=== PATIENT | female | born 2000 | race Caucasian/White ===

== ENCOUNTER 2018-04-17 10:56 | Inpatient (IN) | payer OTHER ==
[2018-04-17] MEDS ORDERED: LACTATED RINGER'S 1,000 ML IV (16:28)
[2018-04-17] MEDS ORDERED: CARBOPROST 250 MCG INJ IM (16:30)
[2018-04-17] MEDS ORDERED: OXYTOCIN 30 UNITS/LR 500 ML IV (16:30)
[2018-04-17] MEDS ORDERED: IBUPROFEN 600 MG TAB PO (16:30)
[2018-04-17] MEDS ORDERED: AMPICILLIN 2 GM/NS (PMX) 100 ML IV (16:30)
[2018-04-17] MEDS ORDERED: BUTORPHANOL 2 MG INJ IV (16:30)
[2018-04-17] MEDS ORDERED: LIDOCAINE 1% (MPF) 30 ML INJ INJ (16:30)
[2018-04-17] MEDS ORDERED: MISOPROSTOL 200 MCG TAB PR (16:30)
[2018-04-17] MEDS ORDERED: METHYLERGONOVINE 0.2 MG INJ IM (16:30)
[2018-04-17] MEDS ORDERED: BUTORPHANOL 1 MG INJ IV (16:30)
[2018-04-17 17:19] LABS: ADD MAN DIFF? NO
[2018-04-17 17:23] LABS: WHITE BLOOD COUNT 9.6 10^3/ul (4.8-10.8)
[2018-04-17 17:23] LABS: BASOPHILS % 0.3 % (0.0-2.0); EOSINOPHILS # 0.2 10^3/ul (0.0-0.5); EOSINOPHILS % 1.6 % (0.0-7.0); HEMATOCRIT 39.9 % (37.0-47.0); HEMOGLOBIN 13.4 g/dl (12.0-16.0); LYMPHOCYTES # 2.3 10^3/ul (0.8-2.9); LYMPHOCYTES % 24.4 % (18.0-55.0); MEAN CORPUSCULAR HEMOGLOBIN 28.9 pg (29.0-33.0); MEAN CORPUSCULAR HGB CONC 33.6 g/dl (32.0-37.0); MEAN CORPUSCULAR VOLUME 86.2 fl (72.0-104.0); MEAN PLATELET VOLUME 11.7 fl (7.4-10.4); MONOCYTE # 0.8 10^3/ul (0.3-0.9); NEUTROPHIL # 6.2 10^3/ul (1.6-7.5); NEUTROPHILS % 65.2 % (30.0-74.0); PLATELET COUNT 283 10^3/UL (140-415); RED BLOOD COUNT 4.63 10^6/ul (4.20-5.40)
[2018-04-17 17:42] LABS: INR 0.82; PROTIME 11.3 Sec (11.9-14.9); PT RATIO 0.9
[2018-04-17 17:43] LABS: PARTIAL THROMBOPLASTIN TIME 27.5 Sec (25.0-35.0)
[2018-04-17] MEDS: LACTATED RINGER'S 1,000 ML IV* ×2 (17:45→22:42)
[2018-04-17 18:10] LABS: HEPATITIS B SURFACE ANTIGEN NEGATIVE (NEGATIVE)
[2018-04-17] MEDS: DINOPROSTONE 10 MG VAG SUPP VAG (19:04)
[2018-04-17] MEDS ORDERED: AMPICILLIN 1 GM/NS (PMX) 50 ML IV (20:30)
[2018-04-17] MEDS ORDERED: MINERAL OIL LIGHT 10 ML VIAL TOP (21:00)
[2018-04-17 21:22] LABS: RAPID PLASMA REAGIN NONREACTIVE (NR)
[2018-04-18 05:25] LABS: ADD UMIC NO; UR ASCORBIC ACID NEGATIVE (NEGATIVE); UR BILIRUBIN (Dip) NEGATIVE (NEGATIVE); UR BLOOD (Dip) NEGATIVE (NEGATIVE); UR CLARITY CLEAR (CLEAR); UR COLOR YELLOW (YELLOW); UR GLUCOSE (Dip) NEGATIVE (NEGATIVE); UR KETONES (Dip) NEGATIVE (NEGATIVE); UR LEUKOCYTE ESTERASE (Dip) NEGATIVE Leu/ul (NEGATIVE); UR NITRITE (Dip) NEGATIVE (NEGATIVE); UR SPECIFIC GRAVITY (Dip) 1.011 (1.003-1.030); UR TOTAL PROTEIN (Dip) NEGATIVE (NEGATIVE); UR UROBILINOGEN (Dip) NEGATIVE (NEGATIVE)
[2018-04-18] MEDS: LACTATED RINGER'S 1,000 ML IV* ×3 (06:39→22:32)
[2018-04-18] MEDS: MISOPROSTOL 25 MCG CAPSULE PO (22:06)
[2018-04-19] MEDS: MISOPROSTOL 25 MCG CAPSULE PO ×5 (01:58→17:00)
[2018-04-19] MEDS: LACTATED RINGER'S 1,000 ML IV* ×4 (06:19→21:12)
[2018-04-19] MEDS: AMPICILLIN 2 GM/NS (PMX) 100 ML IVPB (15:43)
[2018-04-19] MEDS ORDERED: FENTAnyl 2MCG/ML-ROPIV 0.2% 100 ML (16:17)
[2018-04-19] MEDS ORDERED: TERBUTALINE 1 ML (19:22)
[2018-04-19] MEDS: TERBUTALINE 1 MG/ML INJ SC (19:30)
[2018-04-19] MEDS: AMPICILLIN 1 GM/NS (PMX) 50 ML IVPB ×2 (19:30→23:52)
[2018-04-19] MEDS ORDERED: NALOXONE (0.4 MG/ML) INJ IV (21:00)
[2018-04-19] MEDS ORDERED: DIPHENHYDRAMINE 50 MG INJ IV (21:00)
[2018-04-19] MEDS ORDERED: ONDANSETRON 4 MG INJ IV (21:00)
[2018-04-19] MEDS: FENTAnyl 2MCG/ML-ROPIV 0.2% 100 ML BAG EPI (23:09)
[2018-04-20] MEDS: ACETAMINOPHEN 325 MG TAB PO (00:49)
[2018-04-20] MEDS: GENTAMICIN 120 MG/NS (PMX) 100 ML IVPB (00:49)
[2018-04-20] MEDS: LACTATED RINGER'S 1,000 ML IV* ×3 (00:49→21:19)
[2018-04-20] MEDS: OXYTOCIN 30 UNITS/LR 500 ML IV ×5 (00:50→13:30)
[2018-04-20] MEDS: AMPICILLIN 1 GM/NS (PMX) 50 ML IVPB (03:45)
[2018-04-20] MEDS ORDERED: OXYTOCIN 30 UNITS/LR 500 ML IV ×2 (05:19→05:30)
[2018-04-20] MEDS ORDERED: HYDROCODONE/APAP (5/325) TAB PO ×2 (05:30)
[2018-04-20] MEDS ORDERED: MISOPROSTOL 200 MCG TAB PR (05:30)
[2018-04-20] MEDS ORDERED: DIBUCAINE 1% 30 GM OINT PR (05:30)
[2018-04-20] MEDS ORDERED: METHYLERGONOVINE 0.2 MG INJ IM (05:30)
[2018-04-20] MEDS ORDERED: CARBOPROST 250 MCG INJ IM (05:30)
[2018-04-20] MEDS ORDERED: GENTAMICIN 80 MG in SOD CHLORIDE 0.9% 100 ML IVPB (06:00)
[2018-04-20] MEDS ORDERED: AMPICILLIN 2 GM/NS (PMX) 100 ML IV (06:00)
[2018-04-20] MEDS: AMPICILLIN 2 GM/NS (PMX) 100 ML IV ×2 (07:45→12:16)
[2018-04-20] MEDS: GENTAMICIN 80 MG/NS (PMX) 50 ML IVPB (08:44)
[2018-04-20] MEDS: LANOLIN 7 GM TUBE TOP (11:55)
[2018-04-20] MEDS: WITCH HAZEL/GLYCERIN PAD PR (11:55)
[2018-04-20] MEDS: BENZOCAINE 20% 56 ML SPRAY TOP (11:55)
[2018-04-20] MEDS: IBUPROFEN 600 MG TAB PO ×3 (11:55→17:48)
[2018-04-20] MEDS ORDERED: CEPHALEXIN 500 MG CAP PO (15:00)
[2018-04-20] MEDS: AMPICILLIN/SULB 3 GM/NS (PMX) 100 ML IVPB (17:49)
[2018-04-21] MEDS: AMPICILLIN/SULB 3 GM/NS (PMX) 100 ML IVPB ×4 (00:06→18:04)
[2018-04-21] MEDS: IBUPROFEN 600 MG TAB PO ×4 (00:07→18:04)
[2018-04-21] MEDS: LACTATED RINGER'S 1,000 ML IV* ×4 (00:30→13:19)
[2018-04-21 09:01] LABS: ADD MAN DIFF? NO
[2018-04-21 09:05] LABS: BASOPHILS % 0.3 % (0.0-2.0); EOSINOPHILS # 0.3 10^3/ul (0.0-0.5); EOSINOPHILS % 2.2 % (0.0-7.0); HEMOGLOBIN 11.8 g/dl (12.0-16.0); LYMPHOCYTES # 3.9 10^3/ul (0.8-2.9); LYMPHOCYTES % 26.1 % (18.0-55.0); MEAN CORPUSCULAR HEMOGLOBIN 28.3 pg (29.0-33.0); MEAN CORPUSCULAR HGB CONC 31.9 g/dl (32.0-37.0); MEAN CORPUSCULAR VOLUME 88.7 fl (72.0-104.0); MEAN PLATELET VOLUME 11.6 fl (7.4-10.4); MONOCYTE # 1.1 10^3/ul (0.3-0.9); MONOCYTES % 7.1 % (0.0-13.0); NEUTROPHIL # 9.6 10^3/ul (1.6-7.5); NEUTROPHILS % 63.8 % (30.0-74.0); PLATELET COUNT 222 10^3/UL (140-415); RED BLOOD COUNT 4.17 10^6/ul (4.20-5.40); RED CELL DISTRIBUTION WIDTH 16.7 % (11.5-14.5)
[2018-04-22] MEDS: IBUPROFEN 600 MG TAB PO ×3 (00:04→12:37)
[2018-04-22] MEDS: AMPICILLIN/SULB 3 GM/NS (PMX) 100 ML IVPB ×3 (00:04→12:37)
[2018-04-22] MEDS: MEASLES,MUMPS,RUBELLA VACCINE INJ SC* (07:36)
[2018-04-22] MEDS: DIPHTH/TET/ACEL PERTUSS (ADULT) 0.5 ML VIAL IM* (07:36)
[2018-04-22] MEDS: VARICELLA VACCINE LIVE/PF 1,350 UNIT/0.5 ML ML SC* (09:04)
[2018-04-22] MEDS: AL HYDROX/MG HYDROX/SIMETH 30 ML CUP PO (15:27)
== END 2018-04-22 16:00 | disposition home or self-care (01) | DRG 775 ==
LOC: OBT 10:56 → PP1 04-20 08:16 → L-D 10:56 → OBT 15:45 → L-D 15:48
PROVIDERS: Obstetrics & Gynecology
PROC: 3E0P7VZ Introduction of Hormone into Female Reproductive, Via Natural or Artificial Opening (ICD-10-PCS; 2018-04-17)
PROC: 10E0XZZ Delivery of Products of Conception, External Approach (ICD-10-PCS; principal; 2018-04-20)
PROC: 0HQ9XZZ Repair Perineum Skin, External Approach (ICD-10-PCS; 2018-04-20)
DX: O41.03X0 Oligohydramnios, third trimester, not applicable or unspecified (principal); O42.02 Full-term premature rupture of membranes, onset of labor within 24 hours of rupture; O76 Abnormality in fetal heart rate and rhythm complicating labor and delivery; O70.0 First degree perineal laceration during delivery; O77.0 Labor and delivery complicated by meconium in amniotic fluid; O69.81X0 Labor and delivery complicated by cord around neck, without compression, not applicable or unspecified; Z37.0 Single live birth; Z3A.40 40 weeks gestation of pregnancy
CPT/HCPCS: 62319; 76815; 76818; 81003; 85025; 85610; 85730; 86592; 86850; 86900; 86901; 87340; 99464